=== PATIENT | female | born 1925 | race Caucasian/White ===

== ENCOUNTER → 2016-05-27 | Outpatient (CLI) | payer BC ==
[~2016-05-27] MED LIST: AMLO10TA2 PO; AMOX500C3 PO; ANT25 PO; CLAR500T3 PO; LOPE-5 PO; PRLSR20 PO
--- NOTE | 2016-05-27 13:59 | MAMMOGRAPHY REPORT ---
BILATERAL DIGITAL DIAGNOSTIC MAMMOGRAM TOMOSYNTHESIS AND TARGETED RIGHT ULTRASOUND: 05/27/2016 CLINICAL HISTORY: The patient reports a focal area of right breast pain since , which is no w somewhat improved. She denies any palpable lumps. TECHNIQUE: Breast tomosynthesis in addition to standard 2D mammography was performed. Bilateral CC and MLO 2-D and tomosynthesis images were obtained. COMPARISON: Comparison is made to exams dated: 09/14/2014 mammogram, 05/12/2013 mammogram, 05/11/2012 mammogram, 01/10/2015 mammogram, and 04/23/2011 mammogram - [facility]. BREAST COMPOSITION: There are scattered areas of fibroglandular density in both breasts. FINDINGS: A triangle marker rosas the site of focal pain in the right lower outer quadrant. No susp icious masses, calcifications, or areas of architectural distortion are noted in either breast mammo graphically. There has been no significant interval change compared to prior exams. Bilateral capri gn vascular calcifications are again seen. Targeted ultrasound was performed of the area of pain pointed out by the patient, in the right breas t at 7:00, approximately 5 cm from the nipple. Sonographically normal tissue is seen, without evide nce of a mass or other suspicious sonographic abnormality. IMPRESSION: ACR BI-RADS CATEGORY 2: BENIGN, TARGETED ULTRASOUND ACR BI-RADS CATEGORY 2: BENIGN No suspicious mammographic or sonographic abnormality at the site of focal right breast pain. There is no mammographic or targeted sonographic evidence of malignancy. Recommend clinical follow-up fo r right breast pain. The patient reports that she no longer will be getting routine mammograms. The patient has been verbally notified of the results. Approximately 10% of breast cancers are not detected with mammography. A negative mammographic repor t should not delay biopsy if a clinically suggestive mass is present. Lianet Chatterjee M.D. ah/:05/27/2016 10:52:44 Sessions Clerk: Dorie MYERS(Kasandra)(M), [facility] letter sent: Normal 1/2 BI-RADS Code: ACR BI-RADS Category 2: Benign Ultrasound BI-RADS: ACR BI-RADS Category 2: Benign
== END | disposition home or self-care (01) ==
LOC: C.MAMM 10:18
PROVIDERS: ATTEND Nurse Practitioner Family
DX: N64.4 Mastodynia (principal)

== ENCOUNTER → 2016-07-21 | Outpatient (CLI) | payer BC ==
[2016-07-21 08:42] LABS: HEMATOCRIT 46.8 % (37-47); MEAN CELL VOLUME 93.8 fL (80-100); MEAN CORPUSCULAR HEMOGLOBIN 31.3 pg (25-34); MEAN CORPUSCULAR HGB CONC 33.3 g/dl (32-36); MEAN PLATELET VOLUME 10.5 fL (7.4-10.4); PLATELET COUNT 287 K/uL (130-400); RED BLOOD COUNT 4.99 M/uL (4.2-5.4); WHITE BLOOD COUNT 8.12 K/uL (4.8-10.8)
[2016-07-21 09:29] LABS: BLOOD UREA NITROGEN 32 mg/dl (7-18); BUN/CREATININE RATIO 21.6 (10-20); CALCIUM 9.8 mg/dl (8.5-10.1); CARBON DIOXIDE 24 mmol/L (21-32); CHLORIDE 107 mmol/L (98-107); GLUCOSE 90 mg/dl (70-99); PHOSPHORUS 3.1 mg/dl (2.5-4.9); POTASSIUM 4.2 mmol/L (3.5-5.1); SODIUM 141 mmol/L (136-145)
[2016-07-21 09:30] LABS: URINE PROTIEN/CREAT RATIO 0.7 (0-0.2); URINE TOTAL PROTEIN 12.8 mg/dl (0-11.9)
[2016-07-21 09:31] LABS: URINE APPEARANCE CLEAR (CLEAR); URINE BILIRUBIN NEG (NEG); URINE COLOR YELLOW; URINE NITRITE NEG (NEG); URINE SPECIFIC GRAVITY 1.004 (1.000-1.030); UROBILINOGEN NEG (NEG)
[2016-07-21 09:41] LABS: MANUAL MICROSCOPIC REQUIRED? NO; REVIEW REQ? NO
== END | disposition home or self-care (01) ==
LOC: C.LABFOXMH 08:29
PROVIDERS: ATTEND Internal Medicine Nephrology
DX: N18.3 Chronic kidney disease, stage 3 (moderate) (principal)